=== PATIENT | female | born 1990 | race Caucasian/White ===

== ENCOUNTER 2016-12-01 12:08 | Inpatient (IN) ==
[2016-12-01] MEDS ORDERED: ONDANSETRON 4 MG/2 ML VIAL IV PRN (13:25)
[2016-12-01] MEDS ORDERED: OXYTOCIN/LR 20 UNIT/1,000 ML BAG IV SCH (13:30)
[2016-12-01 13:41] LABS: Basophils % 0.2 % (0.0-0.8); Eosinophils # 0.1 10*3/uL (0.0-0.87); Eosinophils % 0.7 % (0.00-10.9); Hematocrit 35.6 VOL% (35.7-47.0); Hemoglobin 12.4 GM/DL (12.0-16.0); Immature Granulocytes % 0.4 %; Immature Granulocytes Absolute 0.03 #; Lymphocytes # 1.5 10*3/uL (1.4-4.0); Lymphocytes % 17.7 % (21.3-54.2); Mean Corpuscular HGB Conc 34.8 GM/DL (32-36); Mean Corpuscular Hemoglobin 32 PG (27-34); Mean Platelet Volume 12.2 FL (9.6-12.0); Monocytes # 0.5 10*3/uL (0.11-0.8); Neutrophils # 6.4 10*3/uL (1.4-7.4); Platelet Count 152 T/CUMM (130-400); Red Blood Count 3.91 MC/CUMM (3.8-5.5); Red Cell Distribution Width 13.4 % (9.3-17.3); White Blood Count 8.5 T/CUMM (4-12)
[2016-12-01] MEDS ORDERED: AMPICILLIN 2,000 MG VIAL ONE (13:57)
[2016-12-01] MEDS ORDERED: SODIUM CHLORIDE 0.9% 100 ML IV ONE (13:58)
[2016-12-01] MEDS ORDERED: CITRIC ACID/SODIUM CITRATE 30 ML UDCUP PO ONE (15:08)
[2016-12-01] MEDS ORDERED: fentaNYL 2 MCG/ROPIV 0.2% EPID 150 ML EPIDURAL SCH (15:08)
[2016-12-01] MEDS ORDERED: PROMETHAZINE 25 MG/1 ML VIAL IM ONE (15:08)
[2016-12-01] MEDS ORDERED: FAMOTIDINE 20 MG/2 ML VIAL IV ONE (15:08)
[2016-12-01] MEDS ORDERED: diphenhydrAMINE 50 MG/1 ML VIAL IV PRN ×2 (15:08)
[2016-12-01] MEDS ORDERED: ONDANSETRON 4 MG/2 ML VIAL IV ONE (15:08)
[2016-12-01] MEDS ORDERED: hydrOXYzine HCL 25 MG/1 ML VIAL IM PRN (15:08)
[2016-12-01] MEDS ORDERED: ePHEDrine 50 MG/ML AMP IV PRN (15:08)
[2016-12-01] MEDS: LACTATED RINGERS 1,000 ML IV SCH (17:51)
[2016-12-01] MEDS: AMPICILLIN INJ 2,000 MG in SODIUM CHLORIDE 0.9% 100 ML IV SCH ×2 (17:54→20:00)
[2016-12-01 18:21] LABS: Apearance,Urine CLEAR (Clear); Bilirubin,Urine Negative (Negative); Blood, Urine Negative (Negative); Glucose,Urine (UA) Negative (Negative); Ketones,Urine 20 mg/dL (Negative); Mucus,Urine Occasional /LPF (Occasional); Nitrite,Urine Negative (Negative); Protein,Urine Negative; RBC,Urine <1 /HPF (0-4); Urine Color Yellow (Yellow); Urine Specific Gravity 1.013 (1.001-1.035); Urine Urobilinogen < 2.0 EU/DL (0.2-1.0); WBC,Urine <1 /HPF (0-6)
[2016-12-01] MEDS ORDERED: miSOPROStol 200 MCG TABLET ONE (22:29)
[2016-12-01] MEDS ORDERED: LIDOCAINE 1% 50 ML VIAL ONE (22:29)
[2016-12-02] MEDS ORDERED: BENZOCAINE 20%/MENTHOL 0.5% SPRAY 56 GM CAN TOP PRN
[2016-12-02] MEDS ORDERED: RHO(D) IMMUNE GLOBULIN 300 MCG SYRINGE IM ONE
[2016-12-02] MEDS ORDERED: HYDROCORTISONE 2.5% RECTAL CREAM 30 GM TUBE TOP PRN
[2016-12-02] MEDS ORDERED: WITCH HAZEL PADS 100/JAR TOP PRN
[2016-12-02] MEDS ORDERED: LANOLIN 50% CREAM 0.3 OZ TUBE TOP PRN
[2016-12-02] MEDS ORDERED: MEASLES/MUMPS/RUBELLA VACCINE 0.5 ML VIAL SUBCUT ONE
[2016-12-02] MEDS ORDERED: oxyCODONE/ACETAMINOPHEN 5-325 MG TABLET PO PRN ×2
[2016-12-02] MEDS ORDERED: DIPH/TET/ACEL PERT BOOSTER VACCINE 0.5 ML VIAL IM ONE
[2016-12-02] MEDS ORDERED: ONDANSETRON 4 MG/2 ML VIAL IV PRN
[2016-12-02] MEDS ORDERED: BISACODYL 10 MG SUPP RECTAL PRN
[2016-12-02] MEDS ORDERED: OXYTOCIN/LR 20 UNIT/1,000 ML BAG IV ONE
[2016-12-02] MEDS ORDERED: ACETAMINOPHEN 325 MG TABLET PO PRN
--- NOTE | 2016-12-02 | History and Physical Update ---
History and Physical Update - Dictation Physical: refer to scanned H&P - Physical Exam Mental Status: alert and oriented Heart: regular rate and rhythm Lung: clear to auscultation Abdomen: within normal limits Vitals: within normal limits History and Physical Changes: 39w 5 d in early labor admitted for augmentation as indicated. No complications.
[2016-12-02] MEDS: LACTATED RINGERS 1,000 ML IV SCH ×2 (00:42)
[2016-12-02] MEDS: oxyCODONE/ACETAMINOPHEN 5-325 MG TABLET PO PRN ×4 (06:29→23:25)
[2016-12-02 06:59] LABS: Basophils % 0.2 % (0.0-0.8); Eosinophils % 0.2 % (0.00-10.9); Hematocrit 29.1 VOL% (35.7-47.0); Immature Granulocytes % 0.6 %; Immature Granulocytes Absolute 0.07 #; Lymphocytes # 1.6 10*3/uL (1.4-4.0); Lymphocytes % 13.3 % (21.3-54.2); Mean Corpuscular HGB Conc 34.4 GM/DL (32-36); Mean Corpuscular Hemoglobin 31 PG (27-34); Mean Corpuscular Volume 90.4 FL (87-102); Mean Platelet Volume 12.4 FL (9.6-12.0); Monocytes # 0.5 10*3/uL (0.11-0.8); Monocytes % 4.2 % (1.7-12.7); Neutrophils % 81.5 % (38.7-73.9); Platelet Count 119 T/CUMM (130-400); Red Blood Count 3.22 MC/CUMM (3.8-5.5); Red Cell Distribution Width 13.5 % (9.3-17.3); White Blood Count 12.2 T/CUMM (4-12)
--- NOTE | 2016-12-02 07:13 | Anesthesia Post-Op ---
Anesthesia Post OP - Post Ansesthetic Evaluation Patient seen in post op: Yes Resp: within normal limits CV: within normal limits Mental: within normal limits Temp: within normal limits [id number]: within normal limits Nausea and Vomiting: within normal limits Pain: within normal limits
[2016-12-02] MEDS: DOCUSATE SODIUM 100 MG CAPSULE PO SCH ×2 (08:51→20:59)
[2016-12-02] MEDS ORDERED: FLUCONAZOLE 200 MG TABLET PO ONE (10:00)
[2016-12-02] MEDS: IBUPROFEN 800 MG TABLET PO PRN (16:25)
[2016-12-03] MEDS: oxyCODONE/ACETAMINOPHEN 5-325 MG TABLET PO PRN ×2 (06:00→13:15)
[2016-12-03 08:11] VITALS: BP 111/71
[2016-12-03] MEDS: DOCUSATE SODIUM 100 MG CAPSULE PO SCH (08:22)
[2016-12-03] MEDS ORDERED: FLUCONAZOLE 100 MG TABLET PO SCH (09:00)
[2016-12-03] MEDS: IBUPROFEN 800 MG TABLET PO PRN (13:15)
--- NOTE | 2016-12-03 16:20 | Pathology Report from [facility] ---
[facility] ACCESSION # : [id number] PATIENT NAME : Madyson Davis ORDERING DR : ELIOT THIBODEAUX CLINICAL HX: IUP @ 39.5 wks gestation, 4th degree laceration POST-OP DX: Same SPECIMEN INFO: Placenta GROSS DESCRIPTION: Received fresh labeled with the patients name and consists of a 478 gram placenta measuring approximately 18.4 x 17.2 cm x up to 2.4 cm. membranes are pink-cintron, translucent and focally thickened and opaque. There is a 4.5 x 3.5 cm accessory lobe present. The umbilical cord is eccentrically inserted, contains three vessels and measures 38.6 cm and at one end an area of thrombosis measuring approximately 2.0 cm. The surface is [id number] with an area of subchorionic fibrin present measuring up to 2.7 cm. The maternal surface is dark beefy red with intact cotyledons and a few areas of clotted blood present. Scattered areas of calcification and fibrin is present. Sections submitted: A membranes and cord, B and maternal surfaces. DIAGNOSIS FOR MADYSON DAVIS: PLACENTA, MEMBRANES, UMBILICAL CORD: Focal placental infarction with dystrophic calcification, mild intervillous blood. Tri -vessel umbilical cord, eccentrically inserted. Membranes with focal acute and chronic inflammation and attached blood. COLLECTED DATE: 12/02/2016 [facility] REPORT DATE: 12/03/2016 ELECTRONICALLY SIGNED BY: Danyell Park M.D. 12/03/2016 - 10:20:54 [email or web address]
== END 2016-12-03 14:45 | disposition home or self-care (01) | DRG 775 ==
LOC: N.LDOUT 12:08 → N.LD 12:09 → N.OB 12-02 02:45
PROVIDERS: ADMIT Obstetrics & Gynecology; ATTEND Obstetrics & Gynecology